=== PATIENT | male | born 1970 | race Caucasian/White ===

== ENCOUNTER → 2018-08-03 | Outpatient (REF) ==
--- NOTE | 2018-08-04 02:58 | REP ---
Clinical: Pain . Technique: AP, lateral, and open-mouth views. Comparison: 08/02/2008 Findings: Alignment and lordosis is maintained. There is no evidence for acute fracture / compression injury or subluxation. Mild/early moderate focal degenerative disc osteophyte complex at C5-6 is relatively new when compared to prior examination. Impression: Early moderate spondylosis at C5-6. Electronically Signed by Dewey Rocha MD 08/04/2018 02:49 A
== END ==
LOC: M SMT 12:59
PROVIDERS: ATTEND Internal Medicine
DX: Z02.71 Encounter for disability determination (principal)

== ENCOUNTER → 2018-11-04 | Outpatient (REF) | payer OTHER | LOC: M LAB REF 12:38 | PROVIDERS: ATTEND Ophthalmology | DX: D23.111 Other benign neoplasm of skin of right upper eyelid, including canthus (principal) ==